=== PATIENT | male | born 1965 | race Caucasian/White ===

== ENCOUNTER 2017-05-08 13:43 | Emergency (ER) | payer OTHER ==
[~2017-05-08] VITALS: Ht 175.3 cm; Wt 93.0 kg
[~2017-05-08 13:43] MED LIST: ASPIRIN EC81 M1 PO; ATORVASTATIN CA80 M1 PO; CHERATUSSIN AC118 ML PO; CLOPIDOGREL75 M1 PO; COLACE100 M1 PO; LEVAQUIN500 M1 PO; LOSARTAN POTASS25 M1 PO; METOPROLOL TART25 M1 PO; NASONEX17 GM NASB; NOVOLOG100 UNIT/2 SC; PERCOCET 5-3251 EACH PO; PREDNISONE10 M2 PO; TESSALON PERLE100 M1 PO; VENTOLIN HFA18 GM INH; ZETIA10 M1 PO
[2017-05-08 14:05] VITALS: BP 167/89
== END 2017-05-08 16:55 | disposition admitted as inpatient to this hospital (09) ==
LOC: ERH 13:43
DX: R68.89 Other general symptoms and signs (principal)
CPT/HCPCS: 87804; 87804-59; 99281